=== PATIENT | female | born 1980 | race Hispanic/Latino ===

== ENCOUNTER 2017-12-01 12:14 | Outpatient (CLI) | payer OTHER | END 2017-12-01 12:15 | disposition home or self-care (01) | LOC: BICULT 12:14 | DX: L08.9 Local infection of the skin and subcutaneous tissue, unspecified (principal) ==

== ENCOUNTER 2023-05-14 08:52 | Emergency (ER) | payer BC, SELFPAY | END 2023-05-14 09:58 | disposition home or self-care (01) | LOC: ERS 08:52 | DX: L03.115 Cellulitis of right lower limb (principal) | CPT/HCPCS: 99283 ==

== ENCOUNTER 2023-05-16 12:23 | Inpatient (IN) | payer BC ==
[2023-05-16 15:33] LABS: #Monocytes 0.5 thou/uL (0.11-0.59); #Neutrophils 8.7 thou/uL (1.40-6.50); %Basophils 0.1 % (0.0-1.0); %Eosinophils 0.4 % (0.0-10.0); %Lymphocytes 10.5 % (21.0-51.0); %Monocytes 4.4 % (0.0-10.0); %Neutrophils 84.2 % (42.0-75.0); Hematocrit 44.2 % (36.0-47.0); Mean Corpuscular HGB CONC 33.9 g/dL (32.0-36.0); Mean Corpuscular Hemoglobin 30.3 pg (27.0-31.0); Mean Corpuscular Volume 89.3 fl (78.0-98.0); Mean Platelet Volume 12.1 fL (7.4-10.4); Platelet Count 205 10x3/uL (130-400); RBC Distribution Width 12.5 % (11.5-14.5); Red Blood Cell (RBC) Count 4.95 mill/uL (4.20-5.40); White Blood Cell (WBC) Count 10.4 10x3/uL (4.8-10.8)
[2023-05-16 15:53] LABS: ALT (SGPT) 13 U/L (8-55); AST (SGOT) 17 U/L (5-34); Albumin 4.8 g/dL (3.5-5.0); Alkaline Phosphatase 86 U/L (40-110); Anion Gap 17 mmol/L (10-20); BUN (Urea Nitrogen) 12 mg/dL (7.0-18.7); Bilirubin, Total 0.6 mg/dL (0.2-1.2); Calc. Creatinine Clearance 0 mL/min (70-130); Calcium 9.5 mg/dL (7.8-10.44); Carbon Dioxide 20 mmol/L (22-29); Chloride 105 mmol/L (98-107); Estimated GFR 95; Globulin 3.5 g/dL (2.4-3.5); Glucose 117 mg/dL (70-105); Potassium 4.6 mmol/L (3.5-5.1); Protein, Total 8.3 g/dL (6.0-8.3); Sodium 137 mmol/L (136-145)
[2023-05-16] MEDS ORDERED: Sodium Chloride 0.9% 100 ML ONE (16:44)
[2023-05-16] MEDS ORDERED: Cefepime 2 GM VIAL ONE (16:44)
[2023-05-16] MEDS ORDERED: Ondansetron PF 4 MG/2 ML Vial IVP PRN (17:31)
[2023-05-16] MEDS ORDERED: Ondansetron ODT 4 MG TAB PO PRN (17:31)
[2023-05-16 18:09] LABS: Lactic Acid 1.2 mmol/L (0.5-2.2)
[2023-05-16 18:42] VITALS: BMI 34.0
[2023-05-16] MEDS: Vancomycin (BATCH) 1.5 GM in Premix 1 BAG IVPB SCH (19:45)
[2023-05-16] MEDS: diphenhydrAMINE 50 MG/ML VIAL IVP SCH (22:41)
[2023-05-17] MEDS: Cefepime 2 GM in Sodium Chloride 0.9% 100 ML IVPB SCH (04:32)
[2023-05-17 06:28] LABS: #Eosinphils 0.2 thou/uL (0.0-0.7); #Monocytes 0.5 thou/uL (0.11-0.59); #Neutrophils 4.6 thou/uL (1.40-6.50); %Basophils 0.5 % (0.0-1.0); %Eosinophils 2.7 % (0.0-10.0); %Lymphocytes 14.5 % (21.0-51.0); %Monocytes 8.4 % (0.0-10.0); %Neutrophils 73.6 % (42.0-75.0); Hematocrit 40.5 % (36.0-47.0); Hemoglobin 13.5 g/dL (12.0-16.0); Mean Corpuscular HGB CONC 33.3 g/dL (32.0-36.0); Mean Corpuscular Hemoglobin 29.8 pg (27.0-31.0); Mean Corpuscular Volume 89.4 fl (78.0-98.0); Platelet Count 172 10x3/uL (130-400); RBC Distribution Width 12.9 % (11.5-14.5); Red Blood Cell (RBC) Count 4.53 mill/uL (4.20-5.40); White Blood Cell (WBC) Count 6.2 10x3/uL (4.8-10.8)
[2023-05-17 06:46] LABS: Anion Gap 10 mmol/L (10-20); BUN (Urea Nitrogen) 14 mg/dL (7.0-18.7); Calc. Creatinine Clearance 166 mL/min (70-130); Calcium 9.2 mg/dL (7.8-10.44); Carbon Dioxide 22 mmol/L (22-29); Chloride 107 mmol/L (98-107); Estimated GFR 106; Glucose 98 mg/dL (70-105); Potassium 4.4 mmol/L (3.5-5.1); Sodium 135 mmol/L (136-145)
[2023-05-17] MEDS: Enoxaparin 40 MG (0.4 mL) SYRINGE SC SCH (10:26)
[2023-05-17] MEDS: Famotidine 20 MG TAB PO SCH (10:26)
[2023-05-17] MEDS: Acetaminophen 325 MG TAB PO PRN (10:42)
[2023-05-17] MEDS: Vancomycin (BATCH) 1.5 GM in Premix 1 BAG IVPB SCH (13:52)
[2023-05-18] MEDS: diphenhydrAMINE 25 MG CAP PO PRN (05:18)
[2023-05-18] MEDS ORDERED: Vancomycin (BATCH) 1.5 GM in Premix 1 BAG IVPB SCH (14:00)
[2023-05-18 17:48] LABS: Vancomycin, Trough 10.4 ug/mL
[2023-05-18] MEDS: Vancomycin (BATCH) 1.5 GM in Premix 1 BAG IVPB SCH (18:18)
[2023-05-19] MEDS: Furosemide 20 MG TAB PO SCH (08:40)
[2023-05-19] MEDS: Clindamycin 150 MG CAP PO SCH ×2 (15:13→17:38)
[2023-05-20] MEDS: Ciprofloxacin 500 MG TAB PO SCH (21:20)
[2023-05-20] MEDS: Doxycycline 100 MG CAP PO SCH (21:20)
[2023-05-21 11:25] VITALS: BP 114/74; TEMP 98.7
== END 2023-05-21 12:26 | disposition home or self-care (01) | DRG 300 ==
LOC: ERS 12:23 → T4-A 17:07 → OBSVTOIN 17:07
PROVIDERS: ADMIT Family Medicine; ATTEND Internal Medicine
DX: I83.018 Varicose veins of right lower extremity with ulcer other part of lower leg (principal); E87.1 Hypo-osmolality and hyponatremia; L97.819 Non-pressure chronic ulcer of other part of right lower leg with unspecified severity; L03.115 Cellulitis of right lower limb; Z79.899 Other long term (current) drug therapy; Z98.890 Other specified postprocedural states; Z88.1 Allergy status to other antibiotic agents
CPT/HCPCS: 36415; 80048; 80053; 80202; 82565; 83605; 85025; 86140; 87040; 93005; 93010; 93306; 93923; 93970; 96374; 97139; J0692; J1200; J1650; J3370; J3490

== ENCOUNTER 2025-03-19 15:37 | Outpatient (CLI) | payer BC | END 2025-03-19 15:38 | disposition home or self-care (01) | LOC: BICRAD 15:37 | PROVIDERS: ATTEND Family Medicine | DX: M25.552 Pain in left hip (principal); M79.18 Myalgia, other site; M51.369 Other intervertebral disc degeneration, lumbar region without mention of lumbar back pain or lower extremity pain; M47.816 Spondylosis without myelopathy or radiculopathy, lumbar region | CPT/HCPCS: 72100 ==